=== PATIENT | female | born 1965 | race Caucasian/White ===

== ENCOUNTER → 2023-11-24 16:01 | Outpatient (REF) | payer OTHER, SELFPAY | LOC: HWWDC 16:01 | PROVIDERS: ATTENDING PHYSICIAN Obstetrics & Gynecology; FAMILY PHYSICIAN Physician Assistant Medical | DX: Z12.31 Encounter for screening mammogram for malignant neoplasm of breast (principal) | CPT/HCPCS: 77063; 77067 ==

== ENCOUNTER → 2024-02-21 09:30 | Outpatient (REF) | payer OTHER, SELFPAY | LOC: HWRAD 09:30 | PROVIDERS: ATTENDING PHYSICIAN Physician Assistant Medical | DX: M54.32 Sciatica, left side (principal); M79.605 Pain in left leg | CPT/HCPCS: 93971 ==

== ENCOUNTER → 2024-02-23 10:32 | Outpatient (REF) | payer OTHER, SELFPAY | LOC: HWRAD 10:32 | PROVIDERS: ATTENDING PHYSICIAN Physician Assistant Medical | DX: R29.890 Loss of height (principal); Z00.00 Encounter for general adult medical examination without abnormal findings; D68.59 Other primary thrombophilia; M79.605 Pain in left leg; R63.5 Abnormal weight gain; M54.32 Sciatica, left side | CPT/HCPCS: 72110; 77080 ==

== ENCOUNTER → 2024-03-14 07:48 | Outpatient (REF) | payer OTHER, SELFPAY | LOC: HWRAD 07:48 | PROVIDERS: ATTENDING PHYSICIAN Physician Assistant Medical | DX: K80.20 Calculus of gallbladder without cholecystitis without obstruction (principal) | CPT/HCPCS: 76700 ==